=== PATIENT | female | born 1955 | race Two or more races ===

== ENCOUNTER 2025-01-21 07:00 | Day surgery (SDC) | payer OTHER ==
[2025-01-15 11:16] VITALS: BP 114/80
[~2025-01-21] VITALS: Ht 160 cm; Wt 90.7 kg
[~2025-01-21 07:00] MED LIST: BUPIVACAINE HCL/MPF 0.5% 30ML VIAL ONE; CARVEDILOL25 MG; CYCLOBENZAPRINE10 MG PO; HYDRALAZINE HCL50 MG PO; HYDROCHLOROTHIA25 MG PO; LAXATIVE5 MG; LIDOCAINE HCL 1%/EPINEPHRINE 20ML VIAL IJ ONE; ORTHO DF 3,7751 EACH PO; POVIDONE-IODINE 118 ML BOTT TOP ONE; PROAIR RESPICL90 MCG; SIMVASTATIN80 MG; ZESTRIL20 MG PO
[2025-01-21] MEDS ORDERED: BUPIVACAINE HCL/PF 0.25% 30ML VIAL InF ONE (07:45)
[2025-01-21] MEDS ORDERED: METRONIDAZOLE/SODIUM CHLORIDE 500 MG/100 ML PIGGYBACK IV ONE (07:45)
[2025-01-21] MEDS ORDERED: CEFTRIAXONE SODIUM 2,000 MG VIAL IV ONE (07:45)
[2025-01-21] MEDS ORDERED: LIDOCAINE HCL 1%/EPINEPHRINE 20ML VIAL IJ ONE (07:45)
[2025-01-21] MEDS ORDERED: POVIDONE-IODINE 118 ML BOTT TOP ONE (07:45)
== END 2025-01-21 11:40 | disposition home or self-care (01) ==
LOC: CIR.AMB 07:00
PROVIDERS: ATTEND Colon & Rectal Surgery
DX: R15.9 Full incontinence of feces (principal); R32 Unspecified urinary incontinence
CPT/HCPCS: 64581; C1778

== ENCOUNTER 2025-02-04 06:00 | Day surgery (SDC) | payer OTHER ==
[~2025-02-04 06:00] MED LIST changes: -BUPIVACAINE HCL/MPF 0.5% 30ML VIAL ONE; -LIDOCAINE HCL 1%/EPINEPHRINE 20ML VIAL IJ ONE; -POVIDONE-IODINE 118 ML BOTT TOP ONE
[2025-02-04] MEDS ORDERED: CEFTRIAXONE SODIUM 2,000 MG VIAL ONE (06:52)
[2025-02-04] MEDS ORDERED: METRONIDAZOLE/SODIUM CHLORIDE 500 MG/100 ML PIGGYBACK IV ONE ×2 (06:52→09:00)
[2025-02-04] MEDS ORDERED: BUPIVACAINE HCL/MPF 0.5% 30ML VIAL ONE (07:08)
[2025-02-04] MEDS ORDERED: LIDOCAINE HCL 1%/EPINEPHRINE 20ML VIAL IJ ONE (07:08)
[2025-02-04] MEDS ORDERED: POVIDONE-IODINE 118 ML BOTT TOP ONE (07:08)
[2025-02-04] MEDS ORDERED: CEFTRIAXONE SODIUM 2,000 MG VIAL IV ONE (09:00)
== END 2025-02-04 11:30 | disposition home or self-care (01) ==
LOC: CIR.AMB 06:00
PROVIDERS: ATTEND Colon & Rectal Surgery
DX: R15.9 Full incontinence of feces (principal); R32 Unspecified urinary incontinence
CPT/HCPCS: 64590; 95971; C1767